=== PATIENT | female | born 1990 | race Caucasian/White ===

== ENCOUNTER 2016-06-15 16:19 | Emergency (ER) | payer BC ==
[2016-06-15 16:26] VITALS: RESP 18
[2016-06-15 16:53] LABS: COLOR AMBER; LEUKOCYTE ESTERASE,URINE NEGATIVE (NEGATIVE); NITRITE,URINE POSITIVE (NEGATIVE)
[2016-06-15 16:59] LABS: BACTERIA 2+ /hpf (NONE SEEN); WBC,URINE 50-182 /hpf (0-3)
--- NOTE | 2016-06-15 18:04 | EDPHY ---
H & P Stated Complaint: uti symptoms Time Seen by Provider: 06/15/16 18:04 - Personal History LMP (Females 10-55): 15-21 Days Ago Current Tetanus/Diphtheria Vaccine: Unsure Tetanus Vaccine Date: 2005 - Medical/Surgical History Hx Asthma: No Hx Chronic Respiratory Disease: No Hx Diabetes: No Hx Cardiac Disease: No Hx Renal Disease: No Hx Cirrhosis: No Hx Alcoholism: No Hx HIV/AIDS: No Hx Splenectomy or Spleen Trauma: No Other PMH: Lupus. Raynauds - Social History Smoking Status: Current every day smoker Constitutional: Initial Vital Signs Temperature (C) 36.3 C 06/15/16 16:24 Heart Rate 90 06/15/16 16:24 Respiratory Rate 18 06/15/16 16:24 Blood Pressure 145/92 H 06/15/16 16:24 O2 Sat (%) 96 06/15/16 16:24 O2 Delivery Mode Room Air Allergies/Adverse Reactions: Sulfa (Sulfonamide Antibiotics) Allergy (Verified 08/11/13 19:20) Home Medications: Medication Instructions Recorded NK [No Known Home Meds] 06/15/16 Medical Decision Making ED Course/Re-evaluation: CHIEF COMPLAINT: HISTORY OF PRESENT ILLNESS: must have 4 elements: Location, Quality, Severity , Duration, Timing, Context, Modifying Factors, Associated Signs and Symptoms REVIEW OF SYSTEMS: A 10 point review of systems was performed and is negative with the exception of the elements mentioned in the history of present illness. PHYSICAL EXAM: HR, BP, O2 Sat, RR. Temp noted General Appearance: Alert, well hydrated, appropriate, and non-toxic appearing. Head: Atraumatic without scalp tenderness or obvious injury Eyes: Pupils equal, round, reactive to light and accommodation, EOMI, no trauma , no injection. Ears: Clear bilaterally, no perforation, normal landmarks Nose: Atraumatic, no rhinorrhea, clear. Throat: There is no erythema or exudates, no lesions, normal tonsils, mucus membranes moist. Neck: Supple, 2+ carotid upstroke, nontender, no lymphadenopathy. Respiratory: No retractions, no distress, no wheezes, and no accessory muscle use. Lungs are clear to auscultation bilaterally. Cardiovascular: Regular rate and rhythm, no murmurs, rubs, or gallops. Bilateral carotid, radial, dorsalis pedis, and posterior tibial pulses intact. Good capillary refill all extremities. Gastrointestinal: Abdomen is soft, nontender, non-distended, no masses, no rebound, no guarding, no peritoneal signs. Musculoskeletal: Normal active ROM of all extremities, atraumatic. Neurological: Alert, appropriate, and interactive. The patient has normal DTRs and non-focal cranial nerves, motor, sensory, and cerebellar exam. Skin: No rashes, good turgor, no nodules on palpation. Past medical history: Past surgical history: Family history: Social history: DIAGNOSTICS/PROCEDURES/CRITICAL CARE TIME: DIFFERENTIAL DIAGNOSIS: MEDICAL DECISION MAKING: - Data Points Laboratory Results: 06/15/16 16:30 Urine Color EDUAR Urine Appearance CLEAR Urine pH 5.0 (5.0-7.5) Ur Specific [place] 1.012 (1.002-1.030) Urine Protein 1+ H (NEGATIVE) Urine Ketones NEGATIVE (NEGATIVE) Urine Blood 1+ H (NEGATIVE) Urine Nitrate POSITIVE H (NEGATIVE) Urine Bilirubin NEGATIVE (NEGATIVE) Urine Urobilinogen 4.0 H EU (0.2-1.0) Ur Leukocyte Esterase NEGATIVE (NEGATIVE) Urine RBC 10-15 H /hpf (0-3) Urine WBC 50-182 H /hpf (0-3) Ur Epithelial Cells 2+ H /lpf (NONE-1+) Urine Bacteria 2+ H /hpf (NONE SEEN) Urine Glucose NEGATIVE (NEGATIVE)
--- NOTE | 2016-06-15 18:58 | EDPHY ---
H & P Time Seen by Provider: 06/15/16 18:04 HPI/ROS: CHIEF COMPLAINT: Abdominal pain, back pain, urinary frequency HISTORY OF PRESENT ILLNESS: 25-year-old female presents to the emergency department complaining of diffuse abdominal pain, right low back pain and dysuria and frequency with urination. Patient began having symptoms of dysuria , urgency and frequency with urination about 1 week ago. She was treating this with [id number] medication. However the patient continues to have ongoing symptoms and now has felt slightly nauseous. She vomited 2 days ago. No known fevers or chills. Last menstrual period was 2 weeks ago she denies . She denies chest pain or difficulty breathing. Denies any reported trauma. She has had a history of frequent urinary tract infections in the past. She has had pyelonephritis in the past as well. REVIEW OF SYSTEMS: Constitutional: No fever, no chills. Eyes: No double or blurry vision. ENT: No sore throat. Respiratory: No cough, no shortness of breath. Cardiac: No chest pain. Gastrointestinal: Abdominal pain as above. No vomiting or diarrhea. Genitourinary: No dysuria. Musculoskeletal: Right flank pain. No neck pain. Skin: No rashes. Neurological: No headache. Past Medical/Surgical History: Urinary tract infection, pyelonephritis Social History: Single Smoking Status: Current every day smoker Physical Exam: General Appearance: Alert, no distress. Afebrile. Nontoxic appearing. Eyes: Pupils equal and round. Extraocular motions are all intact. ENT: Mouth: Mucous membranes moist. Respiratory: No wheezing, rhonchi, or rales, lungs are clear to auscultation. Cardiovascular: Regular rate and rhythm. Gastrointestinal: Abdomen is soft. She has mild tenderness in the suprapubic area. No rebound, guarding or masses noted. Mild CVA tenderness on the right, none on the left. Neurological: Alert and oriented x 3, cranial nerves II through XII grossly intact Skin: Warm and dry, no rashes. Musculoskeletal: Nontender to palpate along the cervical, thoracic or lumbar spine. Neck is supple. Extremities: Full range of motion and no peripheral edema. Psychiatric: Patient is oriented X 3, there is no agitation. Constitutional: Initial Vital Signs Temperature (C) 36.3 C 06/15/16 16:24 Heart Rate 90 06/15/16 16:24 Respiratory Rate 18 06/15/16 16:24 Blood Pressure 145/92 H 06/15/16 16:24 O2 Sat (%) 96 06/15/16 16:24 O2 Delivery Mode Room Air Allergies/Adverse Reactions: Sulfa (Sulfonamide Antibiotics) Allergy (Verified 08/11/13 19:20) Home Medications: Medication Instructions Recorded Cephalexin [Keflex] 500 mg PO QID #28 cap 06/15/16 Phenazopyridine HCl [Pyridium] 200 mg PO Q8PRN PRN #6 tab 06/15/16 Medical Decision Making ED Course/Re-evaluation: 25-year-old female presents to the emergency department complaining of dysuria, urgency or frequency with urination. Clinically I think this patient has pyelonephritis as now she has had an episode of vomiting and has flank pain. She has a large amount of white cells in her urine. Urine cultures pending. Patient will be started on Keflex. She was given prescription for peridium. I do not think she needs an IV or admission to the hospital. She does not appear toxic or ill. She has no fever. She has vomited at least 2 days. She was instructed to return if she developed vomiting, worsening flank pain, fever, or if she felt worse in any way. She was comfortable with this plan. Differential Diagnosis: Including but not limited to urinary tract infection, pyelonephritis, kidney stone, acute appendicitis - Data Points Medications Given: Discontinued Medications Cephalexin HCl (Keflex) 500 mg PO EDNOW ONE PRN Reason: Protocol Stop: 06/15/16 19:00 Last Admin: 06/15/16 19:03 Dose: 500 mg Departure - Departure Disposition: Home, Routine, Self-Care Clinical Impression: Acute pyelonephritis Condition: Good Instructions: Kidney Infection (ED) Additional Instructions: Keflex as directed for one week. Pyridium as directed for burning with urination. Call [phone] for the results of your urine culture in 48 hours. Return to the emergency department if you develop fever, vomiting, increasing back pain, or if you feel worse in any way. Referrals: Merly Louise MD [Medical Doctor] - 1 day, if not improved (Primary care provider) Prescriptions: Cephalexin [Keflex] 500 mg PO QID #28 cap Phenazopyridine HCl [Pyridium] 200 mg PO Q8PRN PRN #6 tab PRN Reason: P.r.n. dysuria
[2016-06-15] MEDS ORDERED: CEPHALEXIN 500 MG CAP PO ONE (18:59)
[2016-06-15 19:17] VITALS: BP 128/86; PULSE 71; TEMP 98.1; O2SAT 97
== END 2016-06-15 19:16 | disposition home or self-care (01) ==
DX: N10 Acute pyelonephritis (principal); B96.20 Unspecified Escherichia coli [E. coli] as the cause of diseases classified elsewhere; F17.200 Nicotine dependence, unspecified, uncomplicated

== ENCOUNTER 2016-09-02 16:33 | Emergency (ER) | payer BC ==
[2016-09-02 16:39] VITALS: RESP 16
--- NOTE | 2016-09-02 17:11 | EDPHY ---
H & P Stated Complaint: UTI sxs x 2 days; knows she has a UTI Time Seen by Provider: 09/02/16 17:07 HPI/ROS: CHIEF COMPLAINT: UTI HISTORY OF PRESENT ILLNESS: 26-year-old female presents emergency department with a 2 day history of urinary frequency, urgency and dysuria. Patient reports suprapubic pressure. Patient denies abdominal pain. Patient states she has had multiple urinary tract infections before, the last time was 3 months ago. She denies fevers, chills, nausea or vomiting. No flank pain. Patient denies vaginal discharge or vaginal bleeding. REVIEW OF SYSTEMS: A comprehensive 10 point review of systems is otherwise negative aside from elements mentioned in the history of present illness. Source: Patient Exam Limitations: No limitations - Personal History LMP (Females 10-55): 8-14 Days Ago Current Tetanus Diphtheria and Acellular Pertussis (TDAP): Yes Tetanus Vaccine Date: 2005 - Medical/Surgical History Hx Asthma: No Hx Chronic Respiratory Disease: No Hx Diabetes: No Hx Cardiac Disease: No Hx Renal Disease: No Hx Cirrhosis: No Hx Alcoholism: No Hx HIV/AIDS: No Hx Splenectomy or Spleen Trauma: No Other PMH: Lupus. Raynauds. UTIs - Social History Smoking Status: Former smoker - Physical Exam Exam: Physical Exam Gen: Alert and Oriented, NAD HEENT: PERRL, moist mucous membranes NECK: no meningismus CV: regular rate and regular rhythm PULM: CTAB, no wheezes ABDOMEN: soft, non tender to palpation, BS present BACK: No CVA tenderness NEURO: Neurologically grossly intact EXTREMITIES: normal appearing SKIN: no rash or break in skin on exposed skin PSYCH: answers questions appropriately. Constitutional: Initial Vital Signs Temperature (C) 36.5 C 09/02/16 16:36 Heart Rate 84 09/02/16 16:36 Respiratory Rate 16 09/02/16 16:36 Blood Pressure 123/92 H 09/02/16 16:36 O2 Sat (%) 94 09/02/16 16:36 O2 Delivery Mode Room Air Allergies/Adverse Reactions: Sulfa (Sulfonamide Antibiotics) Allergy (Intermediate, Verified 09/02/16 16:38) lips swell Home Medications: Medication Instructions Recorded Cephalexin [Keflex] 500 mg PO BID 7 Days 09/02/16 Pumpkin Seed Extract/Soy Germ [Azo 300 mg PO 09/02/16 Bladder Control Capsule] Medical Decision Making ED Course/Re-evaluation: 26-year-old female presents with UTI symptoms x2 days. She has no evidence of pyelonephritis. Urinalysis shows 50-182 WBCs. Urine culture is pending. Patient is given strict return precautions. She is discharged with a Keflex prescription. Differential Diagnosis: Diagnosis considered but not limited to urinary tract infection, pyelonephritis , STD - Data Points Laboratory Results: 09/02/16 09/02/16 16:49 16:49 Urine Color EDUAR Urine Appearance HAZY Urine pH 5.0 (5.0-7.5) Ur Specific [place] 1.023 (1.002-1.030) Urine Protein 1+ H (NEGATIVE) Urine Ketones TRACE H (NEGATIVE) Urine Blood NEGATIVE (NEGATIVE) Urine Nitrate NEGATIVE (NEGATIVE) Urine Bilirubin NEGATIVE (NEGATIVE) Urine Urobilinogen 4.0 EU H EU (0.2-1.0) Ur Leukocyte Esterase 1+ H (NEGATIVE) Urine RBC 10-15 /hpf H /hpf (0-3) Urine WBC 50-182 /hpf H /hpf (0-3) Ur Epithelial Cells TRACE /lpf /lpf (NONE-1+) Urine Bacteria TRACE /hpf H /hpf (NONE SEEN) Urine Mucus TRACE /lpf /lpf (NONE-1+) Ur Culture Indicated? INDICATED H (NI) Urine Glucose NEGATIVE (NEGATIVE) Urine Test NEGATIVE Departure - Departure Disposition: Home, Routine, Self-Care Clinical Impression: Urinary tract infection Qualifiers: Urinary tract infection type: acute cystitis Hematuria presence: without hematuria Qualified Code(s): N30.00 - Acute cystitis without hematuria Condition: Good Instructions: Urinary Tract Infection in Women (ED) Additional Instructions: Take your antibiotics as prescribed, drink plenty of fluids, return to the emergency department for any worsening symptoms, fevers, vomiting, new symptoms or concerns. Referrals: Lily Jones MD [Medical Doctor] - As per Instructions (primary care doctor integration architect ) Jason Figueroa MD [[facility] [place]] - As per Instructions ( Pick Pulling Machine Tender) Prescriptions: Cephalexin [Keflex] 500 mg PO BID 7 Days
[2016-09-02 17:37] LABS: COLOR AMBER; LEUKOCYTE ESTERASE,URINE 1+ (NEGATIVE)
[2016-09-02 17:45] LABS: NITRITE,URINE NEGATIVE (NEGATIVE)
[2016-09-02 17:46] LABS: WBC,URINE 50-182 /hpf (0-3)
[2016-09-02 17:47] LABS: BACTERIA TRACE /hpf (NONE SEEN); MUCUS TRACE /lpf (NONE-1+)
[2016-09-02 18:05] VITALS: BP 127/92; PULSE 91; TEMP 98.1; O2SAT 92
== END 2016-09-02 18:04 | disposition home or self-care (01) ==
DX: N30.00 Acute cystitis without hematuria (principal); B96.29 Other Escherichia coli [E. coli] as the cause of diseases classified elsewhere; Z87.891 Personal history of nicotine dependence

== ENCOUNTER 2016-12-18 14:39 | Emergency (ER) | payer BC ==
[2016-12-18 14:51] VITALS: O2SAT 98
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
[2016-12-18 16:21] VITALS: BP 122/100; PULSE 73; RESP 15; TEMP 98.1
== END 2016-12-18 16:20 | disposition home or self-care (01) ==
DX: S22.32XA Fracture of one rib, left side, initial encounter for closed fracture (principal); Z87.891 Personal history of nicotine dependence; W51.XXXA Accidental striking against or bumped into by another person, initial encounter; Y92.89 Other specified places as the place of occurrence of the external cause; Y99.8 Other external cause status; Y93.89 Activity, other specified

== ENCOUNTER → 2018-04-27 | Outpatient (CLI) | payer BC | LOC: FIMAGING 12:52 | PROVIDERS: ATTEND Family Medicine | DX: M79.662 Pain in left lower leg (principal); I82.402 Acute embolism and thrombosis of unspecified deep veins of left lower extremity ==

== ENCOUNTER 2018-05-09 07:37 | Emergency (ER) | payer BC ==
--- NOTE | 2018-05-09 07:56 | EDPHY ---
HPI/HX/ROS/PE/MDM Narrative: CHIEF COMPLAINT: Right chest and back pain HPI: The patient is an anticoagulated (Xarelto) 27 y/o female with a history of a DVT , Lupus, and Raynaud's complaining of upper right chest pain radiating to her back. Around a week ago she had a lower extremity US and was diagnosed with a DVT in her left leg. She was subsequently placed on Xarelto but missed one day of the prescription. Around 2 days ago she developed the upper right chest pain that radiates to her right shoulder. She becomes short of breath when lying on her back and taking a deep breath results in a "shocking feeling" in her chest. She denies injuring or incorrectly lifting with her right arm. No fever, chills , headache, heart palpitation, abdominal pain, urinary or bowel complaints, numbness, paresthesias. REVIEW OF SYSTEMS: Aside from elements discussed in the HPI, a comprehensive 10-point review of systems was reviewed and is negative. PMH: Lupus, Raynaud's, DVT (left leg) SOCIAL HISTORY: Lives in [place], single, employed PHYSICAL EXAM: General: Patient is alert, in no acute distress. ENT: Eyes are normal to inspection. ENT inspection normal. Neck: Normal inspection. Full range of motion. Respiratory: No respiratory distress. Breath sounds normal bilaterally. Cardiovascular: Regular rate and rhythm. Strong peripheral pulses. Normal cap refill. Abdomen: The abdomen is nontender to palpation. There are no peritoneal signs. There are normal bowel sounds. Back: Normal to inspection. No tenderness to palpation. Skin: Normal color. No rash. Warm and dry. Extremities: Normal appearance. Full range of motion. Neuro: Oriented x3. Normal motor function. Normal sensory function. ED Course: 0815: EKG was ordered and interpreted by myself as sinus rhythm with a rate of 64. Please see [facility] system for official reading. 0935: I spoke with Dr. Ca, radiologist, who reports that this patient has a negative chest CT. Patient's labs are also unremarkable. 0937: Reassessed patient and discussed laboratory and imaging studies. I have advised her to continue taking Xarelto and follow up with a restuarant crew worker. Return precautions provided; patient is comfortable with this plan. MDM: This patient presents with chest pain in the setting of recently diagnosed DVT and a missed day of Xarelto. As such, her pre-test probability is quite high, so CTA was performed which rules out PE. There are no signs of TAD, PE, PNA, Ptx or ACS. I think she is safe for discharge with close outpatient follow-up. - Data Points Laboratory Results: Laboratory Results 05/09/18 08:31 05/09/18 08:31 05/09/18 05/09/18 05/09/18 08:37 08:31 08:31 WBC RBC Hgb Hct MCV MCH MCHC RDW Plt Count MPV Neut % (Auto) Lymph % (Auto) [place] % (Auto) Eos % (Auto) Baso % (Auto) Nucleat RBC Rel Count Absolute Neuts (auto) Absolute Lymphs (auto) Absolute Monos (auto) Absolute Eos (auto) Absolute Basos (auto) Absolute Nucleated RBC Immature Gran % Immature Gran # Sodium 140 mEq/L mEq/L (135-145) Potassium 4.0 mEq/L mEq/L (3.5-5.2) Chloride 110 mEq/L mEq/L (97-110) Carbon Dioxide 24 mEq/l mEq/l (22-31) Anion Gap 6 mEq/L mEq/L (6-14) BUN 13 mg/dL mg/dL (7-23) Creatinine 0.6 mg/dL mg/dL (0.6-1.0) Estimated GFR > 60 Glucose 80 mg/dL mg/dL (70-100) Calcium 8.6 mg/dL mg/dL (8.5-10.4) POC Troponin I 0.01 ng/mL ng/mL (0.00-0.08) Beta HCG, Qual NEGATIVE 05/09/18 08:31 WBC 4.18 10^3/uL 10^3/uL (3.80-9.50) RBC 4.21 10^6/uL 10^6/uL (4.18-5.33) Hgb 12.2 g/dL L g/dL (12.6-16.3) Hct 37.2 % L % (38.0-47.0) MCV 88.4 fL fL (81.5-99.8) MCH 29.0 pg pg (27.9-34.1) MCHC 32.8 g/dL g/dL (32.4-36.7) RDW 12.5 % % (11.5-15.2) Plt Count 247 10^3/uL 10^3/uL (150-400) MPV 9.4 fL fL (8.7-11.7) Neut % (Auto) 76.8 % H % (39.3-74.2) Lymph % (Auto) 16.0 % % (15.0-45.0) [place] % (Auto) 4.1 % L % (4.5-13.0) Eos % (Auto) 2.4 % % (0.6-7.6) Baso % (Auto) 0.5 % % (0.3-1.7) Nucleat RBC Rel Count 0.0 % % (0.0-0.2) Absolute Neuts (auto) 3.21 10^3/uL 10^3/uL (1.70-6.50) Absolute Lymphs (auto) 0.67 10^3/uL L 10^3/uL (1.00-3.00) Absolute Monos (auto) 0.17 10^3/uL L 10^3/uL (0.30-0.80) Absolute Eos (auto) 0.10 10^3/uL 10^3/uL (0.03-0.40) Absolute Basos (auto) 0.02 10^3/uL 10^3/uL (0.02-0.10) Absolute Nucleated RBC 0.00 10^3/uL 10^3/uL (0-0.01) Immature Gran % 0.2 % % (0.0-1.1) Immature Gran # 0.01 10^3/uL 10^3/uL (0.00-0.10) Sodium Potassium Chloride Carbon Dioxide Anion Gap BUN Creatinine Estimated GFR Glucose Calcium POC Troponin I Beta HCG, Qual Point of Care Test Results: Chemistry 05/09/18 08:37 POC Troponin I 0.01 ng/mL ng/mL (0.00-0.08) General Time Seen by Provider: 05/09/18 07:53 Initial Vital Signs: Initial Vital Signs Temperature (C) 36.7 C 05/09/18 07:41 Heart Rate 84 05/09/18 07:41 Respiratory Rate 18 05/09/18 07:41 Blood Pressure 114/86 H 05/09/18 07:41 O2 Sat (%) 99 05/09/18 07:41 O2 Delivery Mode Room Air Allergies/Adverse Reactions: Sulfa (Sulfonamide Antibiotics) Allergy (Intermediate, Verified 09/02/16 16:38) lips swell Home Medications: Medication Instructions Recorded Xarelto 05/09/18 Departure - Departure Disposition: Home, Routine, Self-Care Clinical Impression: Chest pain Condition: Good Instructions: Chest Pain (ED) Additional Instructions: You have a negative chest CT. Continue taking Xarelto as prescribed. Follow-up with your primary doctor within 72 hours. Return to the Emergency Department for fever, chest pain, shortness of breath, increasing pain or other worsening of condition. Follow up with a restuarant crew worker for further testing, as soon as possible, within one week. As we discussed, it is impossible to fully rule out heart disease as the cause of your chest pain in the emergency department. We would be happy to reevaluate you and observe you in the hospital at any time. Your CT scan shows some lymph node swelling in both armpits which is likely not related at all to your symptoms today. We recommend you follow-up with your doctor to follow this, and possibly repeat a CT scan within 6 months. Referrals: Taty Reddy MD [Primary Care Provider] - As per Instructions Kwame Walton MD [Medical Doctor] - As per Instructions Report Scribed for: Clayton Mcdonald Report Scribed by: Kalie Capone Date of Report: 05/09/18 Time of Report: 07:55 Physician Review and Approval Statement: Portions of this note were transcribed by an ED scribe. I personally performed the history, physical exam, and medical decision making; and confirm the accuracy of the information in the transcribed note.
[2018-05-09 09:09] LABS: PLATELET COUNT 247 10^3/uL (150-400)
[2018-05-09] MEDS ORDERED: IOPAMIDOL (ISOVUE 370) 100 ML BTL IV ONE (09:10)
[2018-05-09 10:14] VITALS: BP 115/92
--- NOTE | 2018-05-10 14:45 | CPEKG ---
Test Reason : OPEN Blood Pressure : / mmHG Vent. Rate : 064 BPM Atrial Rate : 064 BPM P-R Int : 162 ms QRS Dur : 080 ms QT Int : 387 ms P-R-T Axes : 063 039 022 degrees QTc Int : 400 ms Sinus rhythm Probable left atrial enlargement Borderline T abnormalities, anterior leads Confirmed by Clayton Mcdonald ([id number]) on 05/10/2018 2:44:29 PM Referred By: Confirmed By:Clayton Mcdonald
== END 2018-05-09 10:14 | disposition home or self-care (01) ==
DX: R07.89 Other chest pain (principal); Z79.01 Long term (current) use of anticoagulants; Z88.2 Allergy status to sulfonamides
CPT/HCPCS: 84484-ER; Q9967